=== PATIENT | male | born 1985 | race Two or more races ===

== ENCOUNTER 2017-06-24 15:05 | Emergency (ER) | payer OTHER ==
[~2017-06-24] VITALS: Ht 177.8 cm; Wt 79.4 kg
[2017-06-24] MEDS ORDERED: IV NORMAL SALINE 1000 ML BAG IV ONE ×2 (15:30→18:00)
[2017-06-24 15:53] LABS: BASOPHILS % (AUTO) 0.5 % (0.0-2.0); EOSINOPHILS % (AUTO) 0.1 % (0.0-7.0); HEMATOCRIT 46.8 % (36.7-47.1); HEMOGLOBIN 16.2 g/dL (12.5-16.3); LYMPHOCYTES # (AUTO) 1.4 K/uL (20.0-40.0); LYMPHOCYTES % (AUTO) 16.6 % (20.5-51.5); MEAN CORPUSCULAR HEMOGLOBIN 31.5 uug (23.8-33.4); MEAN CORPUSCULAR HGB CONC 35 g/dL (32.5-36.3); MEAN CORPUSCULAR VOLUME 91.4 fL (73.0-96.2); MONOCYTES # (AUTO) 0.3 K/uL (2.0-10.0); MONOCYTES % (AUTO) 4.2 % (0.0-11.0); NEUTROPHILS # (AUTO) 6.4 K/uL (1.8-8.9); NEUTROPHILS % (AUTO) 78.6 % (38.5-71.5); PLATELET COUNT (AUTO) 199 K/uL (152-348); RED BLOOD CELL COUNT(AUTO) 5.13 MIL/uL (4.06-5.63); WHITE BLOOD COUNT (AUTO) 8.2 K/uL (3.6-10.2)
[2017-06-24 16:01] LABS: CARBON DIOXIDE 31 mmol/L (21-32); CHLORIDE 96 mmol/L (98-107); CREATININE 0.9 mg/dL (0.6-1.3); GLUCOSE 165 mg/dL (74-106); POTASSIUM 3.8 mmol/L (3.5-5.1); UREA NITROGEN, BLOOD 23 mg/dL (7-18)
[2017-06-24 16:07] LABS: ACETAMINOPHEN < 2.0 ug/mL (10-30); ALANINE AMINOTRANSFERASE 88 U/L (16-63); ALKALINE PHOSPHATASE 95 U/L (50-136); ASPARTATE AMINOTRANSFERASE 154 U/L (15-37); BILIRUBIN,DIRECT 0.2 mg/dL (0.0-0.2); BILIRUBIN,TOTAL 0.7 mg/dL (0.2-1.0); TOTAL PROTEIN, SERUM 7.9 g/dL (6.4-8.2)
[2017-06-24 16:13] LABS: ETHANOL 490 MG/DL (0-0)
[2017-06-24 16:15] LABS: THYROID STIMULATING HORMONE 1.324 mIU/mL (0.358-3.740)
--- NOTE | 2017-06-24 16:46 | NUR ---
all md orders tests completed, in and out fowley cath done, urine sent. monitor shows sinus tach at 110, po2=97% on roomair
[2017-06-24 17:09] LABS: *BILIRUBIN,URIN NEGATIVE (NEGATIVE); *BLOOD, URINE 2+ (NEGATIVE); *CLARITY,URINE SLIGHTLY CLOUDY (CLEAR); *COLOR,URINE YELLOW (YELLOW); *KETONES,URINE NEGATIVE (NEGATIVE); *PROTEIN,URINE 1+ (NEGATIVE); *UROBILINOGEN,URINE 0.2 E.U./dl (NORMAL); LEUKOCYTE ESTERASE ,URINE NEGATIVE (NEGATIVE); NITRITE, URINE NEGATIVE (NEGATIVE); PH,URINE 6.5 (5.0-8.0); UGLUCOSE NEGATIVE (NEGATIVE)
[2017-06-24 17:19] LABS: BACTERIA,URINE NONE SEEN /HPF (NONE SEEN); SQUAMOUS EPITHELIAL CELL,UR NONE SEEN /HPF (NONE SEEN); WBC,URINE 0-3 /HPF (0-3)
[2017-06-24] MEDS ORDERED: LORAZEPAM 2 MG/1 ML VIAL IV ONE ×2 (18:00→22:45)
[2017-06-24] MEDS ORDERED: LORAZEPAM 2 MG/1 ML VIAL ONE ×2 (18:20→23:17)
--- NOTE | 2017-06-24 19:14 | NUR ---
pt sleeping, no distress noted, sbar report to vern matthew.
--- NOTE | 2017-06-24 19:18 | NUR ---
Assumed care of patient. Patient asleep, in bed. No acute distress noted. VSS.
[2017-06-24 20:21] LABS: *AMPHETAMINE, URINE NEGATIVE (NEGATIVE); *BARBITURATE, URINE NEGATIVE (NEGATIVE); *CANNABINOID, URINE NEGATIVE (NEGATIVE); *COCCAINE, URINE NEGATIVE (NEGATIVE); *OPIATE, URINE NEGATIVE (NEGATIVE); *PHENCYCLIDINE SCREEN,URINE NEGATIVE (NEGATIVE)
--- NOTE | 2017-06-24 22:12 | NUR ---
Patient sleeping in bed, no acute distress noted. Respirations even and unlabored. no cardiovascular distress noted. VSS
[2017-06-25] MEDS ORDERED: diphenhydrAMINE 50 MG/1 ML VIAL ONE (00:06)
[2017-06-25] MEDS ORDERED: diphenhydrAMINE 50 MG/1 ML VIAL IV ONE (00:15)
--- NOTE | 2017-06-25 00:37 | NUR ---
Patient noted with multiple attempts at elopement. ER MD is aware. Security at bedside at ths time.
--- NOTE | 2017-06-25 02:07 | NUR ---
Patient resting in bed at this time. VSS. Security at bedside due to patient remaining high risk for elopement. Respirations even and unlabored. No cardiovascular distress noted.
--- NOTE | 2017-06-25 03:15 | NUR ---
Patient remains in bed, no acute distress noted. patient able to state his name, make needs known at this time. Speech is clear. No cardiopulmonary distress noted.
--- NOTE | 2017-06-25 05:45 | NUR ---
Patient remains in bed, resting comfortably. Responsive to verbal and tactile stimuli. Respirations even and unlabored. no cardiovascular distress noted. no nausea/vomiting noted. VSS. Denies SI/HI/AH/VH at this time. Direct observation by staff ongoing. Will continue to monitor patient.
--- NOTE | 2017-06-25 06:08 | NUR ---
Patient unable to ambulate with stable gait at this time. ER MD is aware. Patient allowed to return to bed, patient resting at this time. Siderails up x2. Bed in lowest position, wheels locked. All patient needs attended and met. Direct observation by staff ongoing.
--- NOTE | 2017-06-25 07:11 | NUR ---
Report given to Dolly De Luna RN. Patient in bed, asleep. Responsive to verbal and tactile stimuli.
--- NOTE | 2017-06-25 07:29 | NUR ---
Patient discharged to home in stable conditon. Written and verbal after care instructions given. Patient verbalizes understanding of instructions.pt walks in steady gait.
[2017-06-25 07:31] VITALS: BP 111/65
== END 2017-06-25 07:31 | disposition home or self-care (01) ==
LOC: EDBD 15:09 → ER 15:09
DX: F10.129 Alcohol abuse with intoxication, unspecified (principal); R32 Unspecified urinary incontinence; L73.9 Follicular disorder, unspecified
CPT/HCPCS: 36415; 70450; 71045; 80307; 84443; 85025; 85730; 87086; 93005; A4663; C1758; G0480; G0480-TC; J1200; J2060; J7030

== ENCOUNTER 2017-06-26 01:04 | Emergency (ER) | payer OTHER ==
[~2017-06-26] VITALS: Ht 185.4 cm; Wt 79.4 kg
--- NOTE | 2017-06-26 01:10 | NUR ---
Patient brought in by rescue, intoxicated of alcohol, slurred speech, able to follow some commands.
--- NOTE | 2017-06-26 01:10 | NUR ---
Dr. Sandoval at bedside for MSE.
--- NOTE | 2017-06-26 02:20 | NUR ---
Pt sleeping in bed, no acute signs of distress.
--- NOTE | 2017-06-26 03:23 | NUR ---
Pt sleeping in bed, no acute signs of distress.
--- NOTE | 2017-06-26 04:55 | NUR ---
Pt sleeping in bed, no acute signs of distress.
--- NOTE | 2017-06-26 06:07 | NUR ---
Pt sleeping in bed, no acute signs of distress.
--- NOTE | 2017-06-26 07:11 | NUR ---
Passed report to ALBERTO Quiñones.
--- NOTE | 2017-06-26 07:25 | NUR ---
Received patient AOx4, JULIENNE, "Can I have water?" respiration :easy, moves easily on the gurney, calm & cooperative, for discharge when pt is able to ambulate with steady gait.
--- NOTE | 2017-06-26 07:28 | NUR ---
One liter of water in a pitcher provided.
--- NOTE | 2017-06-26 08:07 | NUR ---
Patient is resting comfortably on gurney with eyes closed, NAD , for soberiety
--- NOTE | 2017-06-26 10:01 | NUR ---
No PIV line seen. New bottom pants given to patient to change. Patient's current bottom pants smell of strong urine. Wrist nameband removed per policy. Patient is for discharge when sober per Dr Damico.
--- NOTE | 2017-06-26 10:03 | NUR ---
I WAS SITTNG AT THE NURSES STATION WHEN THE PATIENT AMBULATED TO THE NURSES STATION APROACHED THE DESK AND THEN SAYS TO ME (OUT OF NOWHERE) "WHAT ARE YOU FUCKING LOOKING AT BITCH?" HE THEN WALKED OUT OF ER IN STEADY GAIT
--- NOTE | 2017-06-26 10:04 | NUR ---
Patient is ambulatory out of ER with steady gait. Refuses offer of fpc placement earlier. Patient was given a list of available shelters in the surrounding area but patient left the list of shelters behind on the gurney and he also did not change to hospital bottom pants. Patient used his own clothes. Patient discharged in stable conditon by Dr Damico. Verbal after care instructions given.
--- NOTE | 2017-06-26 10:04 | NUR ---
Note ynes in EDM - 06/26/17 at 1542 by GURINDER Patient given written and verbal discharge instructions. Patient verbalizes understanding of instructions. Patient is ambulatory with steady gait. Refuses offer of assisted placement. Patient given list of available shelters in surrounding area. Patient drank 1.5 liters of water. [facility] provided.
== END 2017-06-26 10:30 | disposition home or self-care (01) ==
LOC: ER 01:05
DX: T51.91XA Toxic effect of unspecified alcohol, accidental (unintentional), initial encounter (principal); F10.20 Alcohol dependence, uncomplicated; Y92.89 Other specified places as the place of occurrence of the external cause
CPT/HCPCS: 36415; A4663; G0480

== ENCOUNTER 2017-06-26 16:23 | Emergency (ER) | payer OTHER ==
[~2017-06-26] VITALS: Ht 175.3 cm; Wt 68.0 kg
--- NOTE | 2017-06-26 16:25 | NUR ---
BIB [facility]. PATIENT IS SLEEPING BUT AROUSES EASY. THIS PATIENT WAS IN THIS ER EARLIER TODAY AND WAS USING PROFANITY AND WAS DRUNK. HE APPEARS DRUNK NOW HE SMELLS HEAVY OF ALCOHOL.
--- NOTE | 2017-06-26 16:46 | NUR ---
PATIENT IS RESTING IN NO DISTRESS.
--- NOTE | 2017-06-26 18:47 | NUR ---
PATIENT CHANGED HIS POSITION IN BED COUPLE TIMES. I BROUGHT SOME WATER BY HIS BEDSIDE TABLE IF HE WANTS TO DRINK WATER.
--- NOTE | 2017-06-26 19:19 | NUR ---
HANDOFF REPORT GIVEN TO FRENCH.
--- NOTE | 2017-06-26 19:31 | NUR ---
Pt is resting in bed. No distress noted.
--- NOTE | 2017-06-26 20:02 | NUR ---
pt wakes up asking for water. pt resting in bed. no distress noted.
--- NOTE | 2017-06-26 22:00 | NUR ---
PT RESTING IN BED WITH EYES CLOSED. NO DISTRESS NOTED.
--- NOTE | 2017-06-26 23:00 | NUR ---
pt asking for drink of water with ice. pt resting in bed with eyes closed. no acute distress noted.
[2017-06-26] MEDS ORDERED: IBUPROFEN 600 MG TABLET ONE (23:13)
[2017-06-26] MEDS ORDERED: IBUPROFEN 600 MG TABLET PO ONE (23:15)
[2017-06-27] MEDS ORDERED: LORAZEPAM 0.5 MG TABLET PO ONE ×2 (00:30→13:15)
[2017-06-27] MEDS ORDERED: LORAZEPAM 1 MG TABLET ONE ×2 (00:38→13:08)
--- NOTE | 2017-06-27 01:09 | NUR ---
pt resting in bed with eyes closed. respirations even + unlabored. no acute distress noted.
--- NOTE | 2017-06-27 02:45 | NUR ---
PT WALKING OUT OF BED ASKING TO USE PHONE TO CALL GF. AMBULATES WITH STEADY GAIT. SPEECH CLEAR. NO ACUTE DISTRESS NOTED.
--- NOTE | 2017-06-27 03:42 | NUR ---
pt resting in bed with eyes closed. respirations even + unlabored. no acute distress noted.
--- NOTE | 2017-06-27 04:56 | NUR ---
pt resting in bed with eyes closed. respirations even + unlabored. no acute distress noted.
--- NOTE | 2017-06-27 06:00 | NUR ---
PT IS AWAKE DRINKING WATER. SPEECH CLEAR. WHEN ABOUT TO DISCHARGE PT, PT STATES HE FEELS SUICIDAL AT THIS TIME. PT STATES HE WANTS TO HARM HIMSELF BY TAKING BUNCH OF PILLS OR JUMPING OFF BRIDGE. SUICIDAL PRECAUTIONS IMPLEMENTED. ALL PT BELONGINGS OUT OF ROOM. PT VSS. NOTIFIED.
[2017-06-27 06:28] LABS: EOSINOPHILS # (AUTO) 0.1 K/uL (0.0-0.7); MEAN CORPUSCULAR HEMOGLOBIN 31.9 uug (23.8-33.4); MONOCYTES # (AUTO) 0.4 K/uL (2.0-10.0)
[2017-06-27 06:28] LABS: *BILIRUBIN,URIN NEGATIVE (NEGATIVE); *BLOOD, URINE NEGATIVE (NEGATIVE); *CLARITY,URINE CLOUDY (CLEAR); *KETONES,URINE 1+ (NEGATIVE); LEUKOCYTE ESTERASE ,URINE NEGATIVE (NEGATIVE); NITRITE, URINE NEGATIVE (NEGATIVE); UGLUCOSE NEGATIVE (NEGATIVE)
[2017-06-27 06:42] LABS: ETHANOL 160 MG/DL (0-0)
[2017-06-27 06:43] LABS: *COLOR,URINE DARK YELLOW (YELLOW); *PROTEIN,URINE 1+ (NEGATIVE); BACTERIA,URINE NONE SEEN /HPF (NONE SEEN); RBC,URINE 0-3 /HPF (0-3); SQUAMOUS EPITHELIAL CELL,UR FEW /HPF (NONE SEEN); WBC,URINE 0-3 /HPF (0-3)
[2017-06-27 06:44] LABS: *AMPHETAMINE, URINE NEGATIVE (NEGATIVE); *BARBITURATE, URINE NEGATIVE (NEGATIVE); *CANNABINOID, URINE NEGATIVE (NEGATIVE); *COCCAINE, URINE NEGATIVE (NEGATIVE); *OPIATE, URINE NEGATIVE (NEGATIVE); *PHENCYCLIDINE SCREEN,URINE NEGATIVE (NEGATIVE); MUCUS,URINE MODERATE /LPF (0-FEW); URINE AMORPHOUS PHOSPHATES MODERATE /HPF
[2017-06-27 06:47] LABS: CARBON DIOXIDE 32 mmol/L (21-32); CHLORIDE 98 mmol/L (98-107); CREATININE 0.8 mg/dL (0.6-1.3); GLUCOSE 83 mg/dL (74-106); POTASSIUM 3.4 mmol/L (3.5-5.1); UREA NITROGEN, BLOOD 19 mg/dL (7-18)
[2017-06-27 06:51] LABS: ALANINE AMINOTRANSFERASE 113 U/L (16-63); ALKALINE PHOSPHATASE 90 U/L (50-136); ASPARTATE AMINOTRANSFERASE 165 U/L (15-37); BASOPHILS % (AUTO) 0.7 % (0.0-2.0); BILIRUBIN,DIRECT 0.3 mg/dL (0.0-0.2); BILIRUBIN,TOTAL 1.5 mg/dL (0.2-1.0); EOSINOPHILS % (AUTO) 1.9 % (0.0-7.0); LYMPHOCYTES % (AUTO) 28.9 % (20.5-51.5); MEAN CORPUSCULAR HGB CONC 35 g/dL (32.5-36.3); MEAN CORPUSCULAR VOLUME 91.6 fL (73.0-96.2); MONOCYTES % (AUTO) 5.5 % (0.0-11.0); NEUTROPHILS # (AUTO) 4.4 K/uL (1.8-8.9); RED BLOOD CELL COUNT(AUTO) 4.34 MIL/uL (4.06-5.63); TOTAL PROTEIN, SERUM 6.9 g/dL (6.4-8.2); WHITE BLOOD COUNT (AUTO) 6.9 K/uL (3.6-10.2)
[2017-06-27 06:52] LABS: ACETAMINOPHEN < 2.0 ug/mL (10-30); HEMOGLOBIN 13.8 g/dL (12.5-16.3)
[2017-06-27 06:53] LABS: HEMATOCRIT 39.8 % (36.7-47.1); PLATELET COUNT (AUTO) 75 K/uL (152-348)
--- NOTE | 2017-06-27 07:01 | NUR ---
handoff report given to Esa veloz shift
[2017-06-27 07:11] LABS: BAND % (MANUAL) 2 % (0-10); EOSINOPHILS % (MANUAL) 1 % (0-8); MONOCYTES % (MANUAL) 4 % (2-10); NEUTROPHILS % (MANUAL) 61 % (42-75)
[2017-06-27 07:16] LABS: LYMPHOCYTES % (MANUAL) 29 % (20-40)
[2017-06-27 07:18] LABS: REACTIVE LYMPHOCYTES 3 % (0-0)
--- NOTE | 2017-06-27 07:27 | NUR ---
Call placed to [facility] Nunez, for PET evaluation. No Answer, Message left for return call.
--- NOTE | 2017-06-27 07:31 | NUR ---
Call received from [facility] Nunez, KAREN 60 min.
--- NOTE | 2017-06-27 09:07 | NUR ---
CORNEL Nunez, at bedside for evaluation.
--- NOTE | 2017-06-27 12:10 | NUR ---
Spoke to Joy at [facility] to check status of patient's transfer. Joy stated that she did not receive information which was faxed, info re-faxed. Joy states to "send the patient" after info re-faxed.
--- NOTE | 2017-06-27 12:11 | NUR ---
Cristina contacted for BLS transportation to [facility], ETA 60 min, Trip #[id number].
--- NOTE | 2017-06-27 13:17 | NUR ---
Patient Tranfers to outside Facility Physician: Dr. Kendrick Location: [facility]
== END 2017-06-27 13:24 | disposition short-term general hospital (02) ==
LOC: ER 16:27
DX: F10.129 Alcohol abuse with intoxication, unspecified (principal); Z59.0 Homelessness
CPT/HCPCS: 36415; 80307; 85025; 93005; A4663; G0480; G0480-TC